=== PATIENT | male | born 1985 | race Caucasian/White ===

== ENCOUNTER 2024-03-31 11:36 | Emergency (ER) | payer SELFPAY ==
[2024-03-31 12:30] VITALS: BP 127/81; PULSE 74; RESP 20; TEMP 36.7; O2SAT 98; BMI 28.2
--- NOTE | 2024-03-31 12:34 | ED_ITS ---
Discharge Plan Disposition Patient Disposition: Home, Self-Care Condition: Good Prescriptions Prescriptions: New ibuprofen [IBU] 800 mg tablet 800 mg PO Q8HP PRN (Reason: Moderate Pain) Qty: 30 0RF cephalexin 500 mg capsule 500 mg PO QID Qty: 40 0RF mupirocin 2 % ointment 1 applic topical TID 7 Days Qty: 15 0RF Referrals Follow up/Referrals: Shai Lopez [Referring] - See instructions Activity Restrictions/Add. Instructions Additional Instructions/Restrictions: Drink plenty of fluids. Take tylenol or ibuprofen for pain or fever. Take the medications as directed. Follow up with your regular doctor. GO TO THE ER FOR ANY WORSENING SYMPTOMS Clinical Impressions Clinical Impression: Laceration of mouth, Need for Tdap vaccination, Avulsion of skin of hand, Jaw pain Instructions Patient Instructions: Tetanus, Diphtheria, and Pertussis Vaccine Discharge ED Provider: Manuel Jansen [facility] [place] General Stated complaint: AO 03/31/24 @10:00, hit in head by clf, inj rt wood Time Seen by Provider: 03/31/24 12:33 History of Present Illness Provider Complaint: He states that earlier today he was working with a cow when the cow ran into him and hit him on his jaw bone. He has rope rodarte on his hands also from the cow pulling on a rope. He has a laceration on the inside of his upper lip. He went to his dentist before he came here to have his teeth checked. He states that his dentist told him his teeth were fine but he needed to come to the [facility] to have the laceration repaired and his jaw bone checked better. His tetanus immunization is not up to date. Related Data Previous Rx's Medication Instructions Recorded cephalexin 500 mg capsule 500 mg PO QID #40 caps 03/31/24 ibuprofen 800 mg tablet (IBU) 800 mg PO Q8HP PRN Moderate Pain 03/31/24 #30 tabs mupirocin 2 % topical ointment 1 applic topical TID 7 days #15 03/31/24 grams Allergies Allergy/AdvReac Type Severity Reaction Status Date / Time No Known Allergies Allergy Verified 03/31/24 12:50 [facility] Disclaimer: The information contained in this section may have been updated after the patient was seen, as this information can be updated by other users. Medical History (Updated 03/31/24 @ 13:46 by Manuel Jansen APRN) No significant past medical history Social History Smoking Status: Never smoker alcohol intake: never current occupational status: employed Travel in the last 8 weeks: None ROS Obtained: Yes All systems reviewed & no additional complaints except as d ocumented Constitutional Constitutional: Denies chills and Denies fever(s) Eyes Eyes: Denies eye discharge ENT Ears, Nose, Mouth, and Throat: Reports as per HPI, Denies dizziness, Denies otalgia, Denies neck pain and Denies sore throat Cardiovascular Cardiovascular: Denies chest pain Respiratory Respiratory: Denies shortness of breath, Denies chest congestion, Denies cough, Denies stridor and Denies wheezing Gastrointestinal Gastrointestingal: Denies nausea or vomiting Musculoskeletal Musculoskeletal: Reports system reviewed and no additional complaints, except as documented, Denies back pain and Denies neck pain Integumentary/Breasts Skin/Breast: Reports as per HPI and Reports wounds Neurologic Neurologic: Denies dizziness and Denies paresthesias Allergic/Immunologic Allergic/Immunologic: Denies wheezing Physical Exam General General appearance: alert and in no apparent distress Head Head exam: atraumatic, normocephalic and normal inspection Eye Eye exam: Present normal appearance, PERRL and EOMI ENT ENT exam: Present mucous membranes moist, TM's normal bilaterally and normal external ear exam Expanded ENT Exam Nose exam: Absent sinus tenderness Nasal speculum exam: Bilateral: normal Mouth exam: Present lip swelling and laceration (there is a 1 cm linear laceration inside his upper lip. no foreign body noted. it does not go all the way through. ); Absent drooling Throat exam: Present normal inspection Neck Neck exam: Present normal inspection, full ROM and trachea midline; Absent meningismus or lymphadenopathy Chest Chest inspection: Present normal inspection and symmetric chest wall rise; Absent tenderness Respiratory Respiratory exam: Present normal lung sounds bilaterally; Absent respiratory distress Cardiovascular Cardiovascular exam: Present regular rate and normal rhythm; Absent JVD Abdominal Exam Abdominal exam: Present soft and normal bowel sounds; Absent distention, tenderness or guarding Extremities Exam Extremities exam: Present normal inspection, full ROM and normal capillary refill; Absent calf tenderness Back Exam Back exam: Present normal inspection; Absent tenderness Neurological Exam Neurological exam: Present alert and oriented X3 Psychiatric Psychiatric exam: Present normal affect and normal mood Skin Skin exam: Present other (there are multiple skin avulsions on the palms of both his hands. no deep tissue damage and no tendon damage. no foreign body. ) Lymphatic Lymphatic Findings: no adenopathy Medical Decision Making Medical Records Medical records reviewed: No I reviewed the patient's medical records. Demetrio Inquiry Pt receiving controlled substance: No Radiology Data #1: Image(s): Other (mandible) Image Reviewed: Yes I reviewed the patient's radiology image and Yes I have reviewed radiologist's interpretation Preliminary Findings: No Fracture Seen Accession No. : [id number] Patient Name / ID : SERGIO MASSEY / [id number] Exam Date : 03/31/2024 13:05:39 ( Final ) Study Comment : Sex / Age : M / 38Y Creator : Armand Reynolds MD Dictator : Forming Tube Selector : Trust Officer : Armand Reynolds MD Approver2 : Report Date : 03/31/2024 13:59:46 My Comment : FINAL REPORT CLINICAL HISTORY: malocclusion of teeth after hit by cow on jaw COMPARISON: None FINDINGS: 4 views of the mandible were obtained. There is no obvious acute fracture or dislocation. The TMJs are intact. There is no soft tissue abnormality. IMPRESSION: No acute findings. Should symptoms persist, consider CT scan. Reviewed, Interpreted and Dictated by Katina Reynolds MD Transcribed by Virginia Maldonado Authenticated and [facility] Procedures Risk/Benefits of Procedure(s) Were Explained: Yes Laceration Laceration 1: Site: lip (inside upper lip) Size (cm): 1 Description: linear Depth: simple, single layer Local Anesthetic: lidocaine 1% Amount of anesthesia used (mL): 1 Pre-repair: wound explored, irrigated extensively and deep structures intact Skin layer closed with: vicryl Size (cm): 5-0 Number of sutures: 3 Technique: simple, interrupted (he tolerated this well, good closure was obtained. the edges were approximated well. )
[2024-03-31 12:50] VITALS: BMI 28.2
[2024-03-31] MEDS: TET/DIPHTH/PERT-ADULT 0.5ML SYRINGE 0.5 ML IM (13:00)
[2024-03-31] MEDS: LIDOCAINE 2% VISCOUS SOL 15ML UDC 15 ML PO (13:06)
[2024-03-31] MEDS: LIDOCAINE 1% PF 2ML AMPULE 2 ML SQ (13:06)
[2024-03-31 13:47] VITALS: BP 127/81; PULSE 74; RESP 20; TEMP 36.7; O2SAT 98
== END 2024-03-31 13:57 | disposition home or self-care (01) ==
PROVIDERS: Emergency Provider Nurse Practitioner Family; PCP Family Medicine
DX: S01.512A Laceration without foreign body of oral cavity, initial encounter (principal); S61.401A Unspecified open wound of right hand, initial encounter; S61.402A Unspecified open wound of left hand, initial encounter; R68.84 Jaw pain; Z23 Encounter for immunization; W55.22XA Struck by cow, initial encounter
CPT/HCPCS: 12011; 70110; 90471; 90715; 99204; 99213; G0463